=== PATIENT | male | born 1930 | race Caucasian/White ===

== ENCOUNTER 2016-06-02 08:07 | Inpatient (IN) | payer MEDICARE ==
[~2016-06-02 08:07] MED LIST: AMLODIPINE-ATO1 EAC9 PO; ASPIR 8181 MG PO; ASPIRIN EC81 MG PO; ATENOLOL-CHLOR1 EACH PO; ATENOLOL/CHLOR1 EACH PO; ATENOLOL/CHLORT1 TAB; AUGMENTIN 875-1 EAC2 PO; AVODART0.5 MG; BACTRIM DS TABL1 TAB PO; BETAGAN5 M1 EACH EYE; BETAGAN5 ML OP; BETIMOL15 M BOTH EYES; CADUET 10 MG/101 TAB PO; CENTRUM SILVER1 EAC3 PO; CENTRUM SILVER1 TA PO; CIPRO500 M1 PO; FUROSEMIDE20 MG PO; KLOR-CON 88 MEQ; KLOR-CON M1010 MEQ; LASIX20 M1; LISINOPRIL10 MG PO; LISINOPRIL20 M1 PO; LISINOPRIL20 MG PO; NAPROXEN375 MG PO; NIFEDIPINE MC; NIFEDIPINE TOP; NORCO 5-325 TA1 EACH PO; PROMETHAZINE HC25 M3 PO; VITAMIN D35000 UNI2 PO; XALATAN2.5 M1 EACH EYE; XALATAN2.5 ML BOTH EYES
[2016-06-02 13:10] LABS: ABG CO2 ARTERIAL 24 mmol/L (21-27); ARTERIAL BLD GAS O2 SATURATION 100 % (95-98); ARTERIAL BLOOD GAS PCO2 38 mmHg (32-45); ARTERIAL PO2 271 mmHg (70-100); BICARBONATE 23 mmol/L (21-28); BLOOD GAS BASE EXCESS -1 mM/L (-/+3)
[2016-06-02 16:28] LABS: BASO % 0.1 % (0-2); EOS % 0.1 % (0-7); HCT-HEMATOCRIT 41.1 % (36.0-53.5); IMMATURE GRANULOCYTES ABSOLUTE 0.04 tho/cmm (0-0.03); IMMATURE GRANULOCYTES PERCENT 0.4 % (0-0.3); LYMPH % 16.4 % (20-45); LYMPH ABSOLUTE COUNT 1.8 tho/cmm (0.8-4.5); MCH (MEAN CORPUSCULAR HGB) 32.1 pg (28.0-32.0); MCHC MEAN CORPUSCULAR HGB CONC 34.1 % (32.0-36.0); MCV (MEAN CELL VOLUME) 94.3 fl (82.0-96.0); MEAN PLATELET VOLUME 9.9 cmc (9.4-12.4); MONO % 5.3 % (0-12); MONOCYTE ABSOLUTE COUNT 0.6 tho/cmm (0.0-1.2); NEUTROPHIL ABSOLUTE COUNT 8.4 tho/cmm (1.6-8.0); NEUTROPHIL-AUTOMATED 8.4 tho/cmm (1.6-8.0); NEUTROPHILS % 77.7 % (40-80); PLATELET COUNT 171 tho/cmm (150-450); RED BLOOD COUNT 4.36 mil/cmm (4.40-5.70); RED CELL DISTRIBUTION WIDTH 14.3 % (12.4-16.4); WHITE BLOOD COUNT 10.7 tho/cmm (4.0-10.0)
[2016-06-02 16:47] LABS: ANION GAP 11 mmol/L (0-20); BLOOD UREA NITROGEN 18 mg/dl (6-24); CALCIUM 8.5 mg/dl (8.5-10.5); CARBON DIOXIDE-VENOUS 25 mmol/L (22-32); CHLORIDE 105 mmol/l (96-110); CREATININE 0.89 mg/dl (0.60-1.30); GLUCOSE 135 mg/dL (70-110); POTASSIUM 3.9 mmol/L (3.7-5.1); SODIUM 137 mmol/L (135-145); TRIGLYCERIDES 76 mg/dl (<149); eGFR VALUE FOR BLACK >90 mL/Min
[2016-06-03 05:08] LABS: ABG CO2 ARTERIAL 26 mmol/L (21-27); ARTERIAL BLD GAS O2 SATURATION 96 % (95-98); ARTERIAL BLOOD GAS PCO2 37 mmHg (32-45); BICARBONATE 25 mmol/L (21-28); BLOOD GAS BASE EXCESS 1 mM/L (-/+3); PH 7.44 Units (7.35-7.45)
[2016-06-03 05:09] LABS: ARTERIAL PO2 72 mmHg (70-100)
[2016-06-03 05:16] LABS: BASO % 0.1 % (0-2); HCT-HEMATOCRIT 40.8 % (36.0-53.5); HGB-HEMOGLOBIN 13.7 gm/dl (13.5-17.0); IMMATURE GRANULOCYTES ABSOLUTE 0.03 tho/cmm (0-0.03); IMMATURE GRANULOCYTES PERCENT 0.3 % (0-0.3); LYMPH % 22.7 % (20-45); LYMPH ABSOLUTE COUNT 2.4 tho/cmm (0.8-4.5); MCH (MEAN CORPUSCULAR HGB) 31.6 pg (28.0-32.0); MCHC MEAN CORPUSCULAR HGB CONC 33.6 % (32.0-36.0); MCV (MEAN CELL VOLUME) 94.2 fl (82.0-96.0); MONO % 7.9 % (0-12); MONOCYTE ABSOLUTE COUNT 0.8 tho/cmm (0.0-1.2); NEUTROPHIL ABSOLUTE COUNT 7.3 tho/cmm (1.6-8.0); NEUTROPHIL-AUTOMATED 7.3 tho/cmm (1.6-8.0); PLATELET COUNT 184 tho/cmm (150-450); RED BLOOD COUNT 4.33 mil/cmm (4.40-5.70); RED CELL DISTRIBUTION WIDTH 14.3 % (12.4-16.4); WHITE BLOOD COUNT 10.6 tho/cmm (4.0-10.0)
[2016-06-03 05:28] LABS: ANION GAP 13 mmol/L (0-20); BLOOD UREA NITROGEN 16 mg/dl (6-24); CALCIUM 8.6 mg/dl (8.5-10.5); CARBON DIOXIDE-VENOUS 26 mmol/L (22-32); CHLORIDE 104 mmol/l (96-110); CREATININE 0.99 mg/dl (0.60-1.30); GLUCOSE 146 mg/dL (70-110); POTASSIUM 3.7 mmol/L (3.7-5.1); SODIUM 139 mmol/L (135-145); eGFR VALUE FOR BLACK 81 mL/Min
[2016-06-05 06:15] LABS: PROTHROMBIN TIME 11.9 SECONDS (9.0-13.6)
[2016-06-05] MEDS ORDERED: CEFDINIR300 M1 PO (12:46)
[2016-06-05] MEDS ORDERED: NORVASC5 M2 (12:53)
[2016-06-05] MEDS ORDERED: [UNRECOGNIZED DRUG - OTHER] PO (12:56)
[2016-06-05] MEDS ORDERED: PRINIVIL10 M1 PO (12:57)
[2016-06-05] MEDS ORDERED: ATENOLOL-CHLOR1 EAC1 PO (12:59)
== END 2016-06-05 15:17 | disposition home health service (06) | DRG 166 ==
LOC: SRG 08:07 → SHSC 08:16 → ORE 10:28 → PACU 12:28 → CCU 13:40 → SRG 18:31 → CCU 18:35 → 5EB 06-04 01:10
PROVIDERS: Family Medicine; Internal Medicine Pulmonary Disease; Nurse Practitioner Acute Care; ADMIT Orthopaedic Surgery Foot and Ankle Surgery
PROC: 0QBQ0ZZ Excision of Right Toe Phalanx, Open Approach (ICD-10-PCS; principal; 2016-06-02)
PROC: 0BH18EZ Insertion of Endotracheal Airway into Trachea, Via Natural or Artificial Opening Endoscopic (ICD-10-PCS; 2016-06-02)
PROC: 0BBM8ZX Excision of Bilateral Lungs, Via Natural or Artificial Opening Endoscopic, Diagnostic (ICD-10-PCS; 2016-06-02)
PROC: 5A1935Z Respiratory Ventilation, Less than 24 Consecutive Hours (ICD-10-PCS; 2016-06-02)
DX: J95.821 Acute postprocedural respiratory failure (principal); J69.0 Pneumonitis due to inhalation of food and vomit; E11.22 Type 2 diabetes mellitus with diabetic chronic kidney disease; I45.2 Bifascicular block; E78.5 Hyperlipidemia, unspecified; N18.3 Chronic kidney disease, stage 3 (moderate); I12.9 Hypertensive chronic kidney disease with stage 1 through stage 4 chronic kidney disease, or unspecified chronic kidney disease; R33.8 Other retention of urine; M14.671 Charcot's joint, right ankle and foot; E55.9 Vitamin D deficiency, unspecified; N40.1 Benign prostatic hyperplasia with lower urinary tract symptoms; Z87.891 Personal history of nicotine dependence; R00.1 Bradycardia, unspecified; E11.39 Type 2 diabetes mellitus with other diabetic ophthalmic complication; H40.9 Unspecified glaucoma; E11.42 Type 2 diabetes mellitus with diabetic polyneuropathy; N18.2 Chronic kidney disease, stage 2 (mild); Z79.82 Long term (current) use of aspirin; Z98.52 Vasectomy status; J44.9 Chronic obstructive pulmonary disease, unspecified; Y83.8 Other surgical procedures as the cause of abnormal reaction of the patient, or of later complication, without mention of misadventure at the time of the procedure; Y92.234 Operating room of hospital as the place of occurrence of the external cause
CPT/HCPCS: C9113; G8978-GP-CJ; G8979-GP-CI; J0690; J1650; J2250; J2543; J7030; J7050; Q9967

== ENCOUNTER 2016-06-08 15:10 | Inpatient (IN) | payer MEDICARE ==
[~2016-06-08 15:10] MED LIST changes: +ATENOLOL-CHLOR1 EAC1 PO; +CEFDINIR300 M1 PO; +NORVASC5 M2; +PRINIVIL10 M1 PO; +[UNRECOGNIZED DRUG - OTHER] PO
[2016-06-08 15:21] LABS: BASO % 0.6 % (0-2); BASO ABSOLUTE COUNT 0.1 tho/cmm (0.0-0.2); EOS % 4.5 % (0-7); EOSINOPHIL ABSOLUTE COUNT 0.4 tho/cmm (0.0-0.7); HGB-HEMOGLOBIN 13.8 gm/dl (13.5-17.0); IMMATURE GRANULOCYTES ABSOLUTE 0.03 tho/cmm (0-0.03); IMMATURE GRANULOCYTES PERCENT 0.3 % (0-0.3); LYMPH ABSOLUTE COUNT 3.2 tho/cmm (0.8-4.5); MCH (MEAN CORPUSCULAR HGB) 32.2 pg (28.0-32.0); MCHC MEAN CORPUSCULAR HGB CONC 34.5 % (32.0-36.0); MCV (MEAN CELL VOLUME) 93.2 fl (82.0-96.0); MEAN PLATELET VOLUME 9.8 cmc (9.4-12.4); MONO % 14.6 % (0-12); MONOCYTE ABSOLUTE COUNT 1.3 tho/cmm (0.0-1.2); NEUTROPHIL ABSOLUTE COUNT 3.8 tho/cmm (1.6-8.0); NEUTROPHIL-AUTOMATED 3.8 tho/cmm (1.6-8.0); PLATELET COUNT 240 tho/cmm (150-450); RED BLOOD COUNT 4.29 mil/cmm (4.40-5.70); RED CELL DISTRIBUTION WIDTH 14.2 % (12.4-16.4); WHITE BLOOD COUNT 8.8 tho/cmm (4.0-10.0)
[2016-06-08 15:40] LABS: ANION GAP 14 mmol/L (0-20); BLOOD UREA NITROGEN 20 mg/dl (6-24); CALCIUM 8.7 mg/dl (8.5-10.5); CARBON DIOXIDE-VENOUS 24 mmol/L (22-32); CHLORIDE 103 mmol/l (96-110); CREATININE 0.96 mg/dl (0.60-1.30); GLUCOSE 109 mg/dL (70-110); MAGNESIUM 1.6 mg/dl (1.3-2.6); POTASSIUM 3.1 mmol/L (3.7-5.1); SODIUM 138 mmol/L (135-145); eGFR VALUE FOR BLACK 84 mL/Min
[2016-06-09 06:56] LABS: ANION GAP 16 mmol/L (0-20); BLOOD UREA NITROGEN 13 mg/dl (6-24); CALCIUM 9.1 mg/dl (8.5-10.5); CARBON DIOXIDE-VENOUS 25 mmol/L (22-32); CHLORIDE 99 mmol/l (96-110); CHOLESTEROL 156 mg/dl (120-200); CREATININE 0.99 mg/dl (0.60-1.30); GLUCOSE 136 mg/dL (70-110); HDL CHOLESTEROL 45 mg/dl (40-60); LDL CHOLESTEROL 87 mg/dl (0-99); MAGNESIUM 1.7 mg/dl (1.3-2.6); SODIUM 137 mmol/L (135-145); TRIGLYCERIDES 124 mg/dl (<149); VLDL 25 mg/dl (0-30); eGFR VALUE FOR BLACK 81 mL/Min
[2016-06-10 02:43] LABS: ANION GAP 13 mmol/L (0-20); BLOOD UREA NITROGEN 14 mg/dl (6-24); CALCIUM 8.6 mg/dl (8.5-10.5); CARBON DIOXIDE-VENOUS 24 mmol/L (22-32); CHLORIDE 106 mmol/l (96-110); CREATININE 0.96 mg/dl (0.60-1.30); GLUCOSE 90 mg/dL (70-110); POTASSIUM 4.2 mmol/L (3.7-5.1); SODIUM 139 mmol/L (135-145); eGFR VALUE FOR BLACK 84 mL/Min
--- NOTE | 2016-06-10 19:18 | NUR ---
PATIENT GOT BACK TO BED AFTER HAVING BM. MONITOR STARTED TO RING ASYTOLE. RN LOOKED AT PATIENT AND HE WAS IN BED JUST FINE THEN HE STARTED TO SHAKE, TURN BRIGHT RED, AND DID NOT RESPOND TO RN WHEN ASKED IF HE WAS OK. ON THE SECOND TIME RN ASKED IF HE WAS OK AND STARTED TO CHECK FOR A PULSE THE PATIENT SAID "I AM FINE" COLOR RETURNED TO NORMAL AND MONITOR SHOWED RSR IN THE 60S. BP: 147/68. NOTIFIED BARI-WITH RAIMUNDO. SHE SAID SHE WAS IN HOUSE AND WOULD BE UP TO LOOK AT THE PATIENT AND LOOK AT THE TELE STRIPS.
[2016-06-10 21:44] LABS: ANION GAP 9 mmol/L (0-20); BLOOD UREA NITROGEN 12 mg/dl (6-24); CALCIUM 8.9 mg/dl (8.5-10.5); CARBON DIOXIDE-VENOUS 26 mmol/L (22-32); CHLORIDE 107 mmol/l (96-110); CREATININE 0.92 mg/dl (0.60-1.30); MAGNESIUM 1.7 mg/dl (1.3-2.6); POTASSIUM 3.9 mmol/L (3.7-5.1); SODIUM 138 mmol/L (135-145); eGFR VALUE FOR BLACK 88 mL/Min
[2016-06-10 21:45] LABS: GLUCOSE 147 mg/dL (70-110)
[2016-06-11 10:23] LABS: BASO % 0.7 % (0-2); BASO ABSOLUTE COUNT 0.1 tho/cmm (0.0-0.2); EOS % 5.4 % (0-7); EOSINOPHIL ABSOLUTE COUNT 0.5 tho/cmm (0.0-0.7); HCT-HEMATOCRIT 43.9 % (36.0-53.5); IMMATURE GRANULOCYTES ABSOLUTE 0.04 tho/cmm (0-0.03); IMMATURE GRANULOCYTES PERCENT 0.4 % (0-0.3); LYMPH % 26.9 % (20-45); LYMPH ABSOLUTE COUNT 2.6 tho/cmm (0.8-4.5); MCH (MEAN CORPUSCULAR HGB) 32.3 pg (28.0-32.0); MCHC MEAN CORPUSCULAR HGB CONC 34.2 % (32.0-36.0); MCV (MEAN CELL VOLUME) 94.4 fl (82.0-96.0); MEAN PLATELET VOLUME 9.6 cmc (9.4-12.4); MONO % 7.9 % (0-12); MONOCYTE ABSOLUTE COUNT 0.8 tho/cmm (0.0-1.2); NEUTROPHIL ABSOLUTE COUNT 5.6 tho/cmm (1.6-8.0); NEUTROPHIL-AUTOMATED 5.6 tho/cmm (1.6-8.0); NEUTROPHILS % 58.7 % (40-80); PLATELET COUNT 319 tho/cmm (150-450); RED BLOOD COUNT 4.65 mil/cmm (4.40-5.70); RED CELL DISTRIBUTION WIDTH 14.3 % (12.4-16.4); WHITE BLOOD COUNT 9.5 tho/cmm (4.0-10.0)
[2016-06-11 10:49] LABS: ANION GAP 15 mmol/L (0-20); BLOOD UREA NITROGEN 12 mg/dl (6-24); CALCIUM 9.5 mg/dl (8.5-10.5); CARBON DIOXIDE-VENOUS 23 mmol/L (22-32); CHLORIDE 104 mmol/l (96-110); CREATININE 1.01 mg/dl (0.60-1.30); GLUCOSE 125 mg/dL (70-110); POTASSIUM 3.9 mmol/L (3.7-5.1); SODIUM 138 mmol/L (135-145); eGFR VALUE FOR BLACK 79 mL/Min
[2016-06-11] MEDS ORDERED: PLAVIX75 M1 PO (12:01)
[2016-06-11] MEDS ORDERED: PACERONE200 M1 PO (12:02)
[2016-06-11] MEDS ORDERED: TENORMIN50 M1 PO (12:05)
[2016-06-11] MEDS ORDERED: NITROGLYCERIN0.4 M2 SL (12:08)
== END 2016-06-11 13:35 | disposition home health service (06) | DRG 247 ==
LOC: EDMED 15:10 → PCUA 18:00
PROVIDERS: Emergency Medicine; Family Medicine; Physician Assistant Medical; ADMIT Internal Medicine Cardiovascular Disease
PROC: B2111ZZ Fluoroscopy of Multiple Coronary Arteries using Low Osmolar Contrast (ICD-10-PCS; principal; 2016-06-10)
PROC: 027034Z Dilation of Coronary Artery, One Artery with Drug-eluting Intraluminal Device, Percutaneous Approach (ICD-10-PCS; principal; 2016-06-10)
PROC: 4A023N7 Measurement of Cardiac Sampling and Pressure, Left Heart, Percutaneous Approach (ICD-10-PCS; principal; 2016-06-10)
PROC: B2151ZZ Fluoroscopy of Left Heart using Low Osmolar Contrast (ICD-10-PCS; principal; 2016-06-10)
DX: I48.92 Unspecified atrial flutter (principal); A52.16 Charcot's arthropathy (tabetic); J44.9 Chronic obstructive pulmonary disease, unspecified; G62.9 Polyneuropathy, unspecified; N18.3 Chronic kidney disease, stage 3 (moderate); E78.5 Hyperlipidemia, unspecified; Z79.82 Long term (current) use of aspirin; Z87.891 Personal history of nicotine dependence; E87.6 Hypokalemia; I25.10 Atherosclerotic heart disease of native coronary artery without angina pectoris; I12.9 Hypertensive chronic kidney disease with stage 1 through stage 4 chronic kidney disease, or unspecified chronic kidney disease
CPT/HCPCS: A9500; C1769; C1874; C1887; C1894; C9600-LC; J0282; J1644; J1650; J2785; Q9967